=== PATIENT | female | born 1945 | race Caucasian/White ===

== ENCOUNTER 2023-02-05 11:52 | Emergency (ER) | payer OTHER ==
[~2023-02-05] VITALS: Ht 157.5 cm; Wt 66.8 kg
[2023-02-05] MEDS ORDERED: OLME40TA PO (12:57)
[2023-02-05] MEDS ORDERED: DIPH2.5T14 PO (12:57)
[2023-02-05] MEDS ORDERED: BIOT1TAB PO (12:57)
[2023-02-05] MEDS ORDERED: METO1TAB32 PO (12:57)
[2023-02-05] MEDS ORDERED: AMLO1TAB24 PO (12:57)
[2023-02-05] MEDS ORDERED: NEUR300C PO (12:57)
[2023-02-05] MEDS ORDERED: ACET500P3 PO (12:57)
[2023-02-05] MEDS ORDERED: TRAZ1TAB14 PO (12:57)
[2023-02-05] MEDS ORDERED: OYST1TAB PO (12:57)
[2023-02-05] MEDS ORDERED: ARTHTAB4 PO (12:57)
[2023-02-05] MEDS ORDERED: LOMO2.5T PO (13:27)
[2023-02-05 13:35] VITALS: BP 136/65
== END 2023-02-05 13:36 | disposition home or self-care (01) ==
LOC: M ED 11:52
DX: Z76.0 Encounter for issue of repeat prescription (principal); I10 Essential (primary) hypertension; E78.5 Hyperlipidemia, unspecified; R19.7 Diarrhea, unspecified; F10.10 Alcohol abuse, uncomplicated; Z88.0 Allergy status to penicillin; Z88.2 Allergy status to sulfonamides; Z88.8 Allergy status to other drugs, medicaments and biological substances; Z91.048 Other nonmedicinal substance allergy status; Z79.891 Long term (current) use of opiate analgesic; Z79.899 Other long term (current) drug therapy